=== PATIENT | female | born 1970 | race Caucasian/White ===

== ENCOUNTER 2017-07-10 08:49 | Outpatient (CLI) | payer BC | END 2017-07-10 08:50 | disposition home or self-care (01) | LOC: BICMAMMO 08:49 | PROVIDERS: ATTEND Family Medicine | DX: Z12.31 Encounter for screening mammogram for malignant neoplasm of breast (principal) | CPT/HCPCS: 77063; 77067 ==

== ENCOUNTER 2018-07-15 08:14 | Outpatient (CLI) | payer BC | END 2018-07-15 08:15 | disposition home or self-care (01) | LOC: BICMAMMO 08:14 | PROVIDERS: ATTEND Obstetrics & Gynecology | DX: Z12.31 Encounter for screening mammogram for malignant neoplasm of breast (principal) | CPT/HCPCS: 77063; 77067 ==

== ENCOUNTER 2019-07-18 08:27 | Outpatient (CLI) | payer BC ==
--- NOTE | 2019-07-18 11:10 | MMO ---
Bilateral MAMMO Bilat Screen [facility]. CLINICAL HISTORY: Patient is 49 years old and is seen for screening. The patient has no family history of breast cancer. The patient has no personal history of cancer. VIEWS: The views performed were: bilateral craniocaudal with tomosynthesis and bilateral mediolateral oblique with tomosynthesis. FILMS COMPARED: The present examination has been compared to prior imaging studies performed at [facility] on 05/10/2015, 06/01/2016, 07/10/2017 and 07/15/2018. This study has been interpreted with the assistance of computer-aided detection. MAMMOGRAM FINDINGS: The breasts are heterogeneously dense, which could obscure a lesion on mammography. There are no suspicious masses, suspicious calcifications, or new areas of architectural distortion. IMPRESSION: THERE IS NO MAMMOGRAPHIC EVIDENCE OF MALIGNANCY. A ROUTINE FOLLOW-UP MAMMOGRAM IN 1 YEAR IS RECOMMENDED. THE RESULTS OF THIS EXAM WERE SENT TO THE PATIENT. ACR BI-RADS Category 1 - Negative MAMMOGRAPHY NOTE: 1. A negative mammogram report should not delay a biopsy if a dominant of clinically suspicious mass is present. 2. Approximately 10% to 15% of breast cancers are not detected by mammography. 3. Adenosis and dense breasts may obscure an underlying neoplasm. Reported by: BRO ALONZO MD Electonically Signed: [id number]
== END 2019-07-18 08:28 | disposition home or self-care (01) ==
LOC: BICMAMMO 08:27
PROVIDERS: ATTEND Obstetrics & Gynecology
DX: Z12.31 Encounter for screening mammogram for malignant neoplasm of breast (principal)
CPT/HCPCS: 77063; 77067

== ENCOUNTER 2020-08-17 08:15 | Outpatient (CLI) | payer BC | END 2020-08-17 08:16 | disposition home or self-care (01) | LOC: BICMAMMO 08:15 | PROVIDERS: ATTEND Obstetrics & Gynecology | DX: Z12.31 Encounter for screening mammogram for malignant neoplasm of breast (principal) | CPT/HCPCS: 77063; 77067 ==

== ENCOUNTER 2021-10-26 08:23 | Outpatient (CLI) | payer BC | END 2021-10-26 08:24 | disposition home or self-care (01) | LOC: BICMAMMO 08:23 | PROVIDERS: ATTEND Obstetrics & Gynecology | DX: Z12.31 Encounter for screening mammogram for malignant neoplasm of breast (principal) | CPT/HCPCS: 77063; 77067 ==

== ENCOUNTER 2023-04-10 11:41 | Outpatient (CLI) | payer BC | END 2023-04-10 11:42 | disposition home or self-care (01) | LOC: BICRAD 11:41 | PROVIDERS: ATTEND Internal Medicine Rheumatology | DX: M79.671 Pain in right foot (principal); M19.071 Primary osteoarthritis, right ankle and foot; M25.774 Osteophyte, right foot; M25.871 Other specified joint disorders, right ankle and foot; M89.8X7 Other specified disorders of bone, ankle and foot ==

== ENCOUNTER 2023-07-09 15:30 | Outpatient (CLI) | payer BC | END 2023-07-09 15:31 | disposition home or self-care (01) | LOC: BICRAD 15:30 | PROVIDERS: ATTEND Internal Medicine Rheumatology | DX: M54.50 Low back pain, unspecified (principal); M47.816 Spondylosis without myelopathy or radiculopathy, lumbar region | CPT/HCPCS: 72100 ==

== ENCOUNTER 2024-01-11 14:33 | Outpatient (CLI) | payer BC | END 2024-01-11 14:34 | disposition home or self-care (01) | LOC: BICRAD 14:33 | PROVIDERS: ATTEND Internal Medicine Rheumatology | DX: M25.561 Pain in right knee (principal); M25.562 Pain in left knee; M25.571 Pain in right ankle and joints of right foot; M06.09 Rheumatoid arthritis without rheumatoid factor, multiple sites; M17.0 Bilateral primary osteoarthritis of knee; M19.071 Primary osteoarthritis, right ankle and foot; M77.51 Other enthesopathy of right foot and ankle | CPT/HCPCS: 73565 ==

== ENCOUNTER 2024-04-14 14:06 | Outpatient (CLI) | payer BC | END 2024-04-14 14:07 | disposition home or self-care (01) | LOC: BICMAMMO 14:06 | PROVIDERS: ATTEND Family Medicine | DX: Z12.31 Encounter for screening mammogram for malignant neoplasm of breast (principal) | CPT/HCPCS: 77063; 77067 ==